=== PATIENT | female | born 1950 | race African-American/Black ===

== ENCOUNTER 2020-07-18 06:09 | Emergency (ER) | payer MEDICARE, OTHER ==
[~2020-07-18] VITALS: Ht 162.6 cm; Wt 69.3 kg
--- NOTE | 2020-07-18 06:28 | NUR ---
THIS IS A 69 YO F W/ C/O RT HIP PAIN X1 WEEK. PT REPORTS MILD SWELLING. PT DENIES INJURY/FALL. PT ABLE TO AMBULATE HOWEVER IT CAUSES PAIN. PT RESTING ON GURNEY W/ CALL LIGHT IN REACH AND SIDE RAILS UPX2. RESP EVEN AND UNLABORED, KANIKA.
--- NOTE | 2020-07-18 06:45 | NUR ---
report from PERNELL Peters
--- NOTE | 2020-07-18 07:00 | NUR ---
PT RESTING ON LIZETH DUBOSEN/VSS. CALL LIGHT WITHIN REACH. NO NEEDS AT THIS TIME
[2020-07-18] MEDS ORDERED: KETOROLAC 30 MG/1 ML ONE (07:14)
[2020-07-18 07:17] VITALS: BP 133/68
[2020-07-18] MEDS ORDERED: KETOROLAC 30 MG/1 ML IM ONE (07:30)
--- NOTE | 2020-07-18 07:40 | NUR ---
Patient given discharge instructions and RX, they have confirmed that they understand the instructions. Patient ambulatory with steady gait. WALKER USE EDUCATION GIVEN
== END 2020-07-18 07:42 | disposition home or self-care (01) ==
LOC: ED 07:10
DX: M76.9 Unspecified enthesopathy, lower limb, excluding foot (principal)
CPT/HCPCS: 73502; 96372; 99283; J1885